=== PATIENT | male | born 1965 | race Caucasian/White ===

== ENCOUNTER 2021-02-24 19:21 | Inpatient (IN) | payer MEDICARE, SELFPAY ==
[2021-02-24 19:23] VITALS: BP 153/94; PULSE 120; RESP 18; TEMP 36.9; O2SAT 98; BMI 25.2
[2021-02-24 21:10] LABS: Bacteria 0 SEEN /hpf (None Seen); Mucous, Urine 0 SEEN /hpf (<or=2+)
--- NOTE | 2021-02-24 21:10 | CT_ITS ---
HISTORY: abdominal pain, diarrhea, fever, frequent urination EXAMINATION: CT Abdomen And Pelvis W/ Contrast Injection TECHNIQUE: Helically acquired images were obtained of the abdomen and pelvis following IV contrast, including delayed imaging, including delayed imaging. A radiation dose optimization technique was used for this scan. IV Contrast dosage and agent: 100mL Isovue-300 Oral contrast: None. COMPARISON: None FINDINGS: LOWER CHEST: Hyperexpanded lungs with no focal airspace consolidation. Small hiatal hernia. Heart normal size. LIVER: Fatty infiltration of liver. Benign, simple 5.4 cm cyst within left lobe of liver. GALLBLADDER AND BILIARY TREE: No calcified gallstones identified. There is no pericholecystic edema. No significant biliary ductal dilation. KIDNEYS AND URETERS: Normal renal size. No concerning lesion. There is no perinephric inflammation or hydronephrosis. ADRENAL GLANDS: Non-enlarged. SPLEEN: Normal size without discrete mass. PANCREAS: No discrete mass or peripancreatic inflammation. BOWEL: Normal appendix medial to cecum within right lower quadrant. No abnormal stomach or bowel distension. No focal inflammatory change observed. LYMPH NODES: No enlarged mesenteric or retroperitoneal lymph nodes. PERITONEUM: No free air or significant free fluid. Couple small, benign appearing calcified nodules within left pelvic cavity, likely dystrophic or post infectious. VESSELS: Mild to moderate atherosclerosis. URINARY BLADDER: Unremarkable. REPRODUCTIVE ORGANS: Markedly enlarged prostate gland measures 7 cm in AP diameter and 7.3 cm transverse diameter. Lobulated low-attenuation cyst within prostate gland surrounding the urethra measures up to 5 cm craniocaudal length and 3 cm axial diameter. ABDOMINAL WALL: Previous left inguinal hernia repair. Small right inguinal fat hernia noted. BONES: L5-S1 degenerative disc space narrowing. CT/Abdomen/Pelvis W IV Cont ONLY IMPRESSION: 1. Enlarged prostate gland with prominent simple appearing prostatic cystic lesion, possibly mullerian duct or utricle cyst. 2. No evidence of acute bowel pathology. 3. Hepatic steatosis, small hiatal hernia, and other nonurgent findings within body of report. Individualized dose optimization techniques were used for this CT. at 2254 Reported and signed by: Sonny Woo MD Electronically Signed: Sonny Woo MD at 22:53 EDT Tel , Service support ,
--- NOTE | 2021-02-24 21:11 | EDS_ITS ---
HPI HPI - GI History of Present Illness Chief Complaint: Complaint Narrative Narrative: 55-year-old male presenting with crampy abdominal pain as well as body aches. This started at 1 AM this morning. Patient is complained of dysuria and urinary frequency. He states I must of urinated 200 times. Patient also states that he has had a lot of diarrhea which is now clear. He denies any recent antibiotics use. 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 He denies fever. Patient currently expresses that his nausea is the worst. He states he has a past medical history of diabetes, hypertension, MS. He denies any black or bloody stools or black or bloody emesis. PFSH PFSH Allergy/AdvReac Type Severity Reaction Status Date / Time codeine AdvReac Nausea/Vom/ Verified 02/24/21 19:28 Diarrhea zinc AdvReac Nausea/Vom/ Verified 02/24/21 19:28 Diarrhea Social History Smoking Status: Never smoker ROS ROS ED Constitutional Constitutional ED: Reports chills; Denies fever(s) ENT ENT ED: Denies rhinorrhea or sore throat Cardiovascular Cardiovascular: Denies chest pain or palpitations Respiratory/Chest Respiratory/Chest: Denies cough or dyspnea Gastrointestinal Gastrointestinal: Reports abdominal pain, diarrhea, nausea and vomiting Genitourinary Genitourinary ED: Reports dysuria and urinary frequency Musculoskeletal Musculoskeletal: Reports myalgias; Denies arthralgias, back pain or neck pain Integumentary Denies Abrasions or rash Neurologic Neurologic: Denies headache(s) or paresthesias EXAM Physical Exam Const Vital Signs: 02/24/21 19:23 02/24/21 21:25 02/25/21 00:19 Temperature 98.5 F 98.5 F Temperature Source Temporal Temporal Pulse Rate 120 H 120 H Respiratory Rate 18 18 22 H Blood Pressure 153/94 H 153/94 H Blood Pressure Mean 113 113 Pulse Ox 98 98 Oxygen Delivery Method Room Air Room Air Positive well nourished General Appearance ED: other Tachycardic and diaphoretic ; Negative for pallor HEENT Reports moist mucous membranes normocephalic Eyes PERRL General Eye ED: Negative for pale conjunctiva or scleral icterus Resp normal respiratory effort and clear to auscultation bilaterally Cardio regular rhythm Rate: tachycardic GI non-tender and non-distended GI Narrative: Prostate is tender, and edematous. Limited exam secondary to patient pain. Palpation: soft Neuro Sensorium / Orientation: alert, oriented to person, oriented to place and oriented to time Psych mental status grossly normal and thought process normal Skin General Skin Exam: Negative for jaundice or pallor Lesions: no lesions Rashes: no rashes MDM MDM MDM Narrative Medical decision making narrative: Patient presenting with painful defecation, urinary frequency, dysuria. Patient states this started about 1 AM last evening. Has been vomiting and having diarrhea since. His diarrhea is now clear. He has not had a fever but complains of chills and body aches. On arrival patient is given Zofran and still continues to vomit. He is diaphoretic. I did ask him if he needed anything for pain and he states his pain is not his issue is more of his nausea and vomiting. On examination he does have a tender edematous prostate. Blood work shows a white blood cell count of 14.3, hemoglobin 15.6, hematocrit 44.8, platelets 161. Patient's CMP shows a mildly elevated total bilirubin of 1.6 and a mildly elevated alk phos at 1.19. Otherwise his LFTs are normal. Creatinine is 1.58 but since the patient is from [place] I do not have a comparison creatinine. Sodium slightly low at 130 however the patient is hyperglycemic with a blood sugar of 489. Patient is only on Metformin. He does not use insulin at home. He does not have an anion gap. Patient is ordered 2 L of IV fluids. Urinalysis is negative for infection but does show occult blood, urine ketones, glucose of 1000. Patient still having vomiting and I did order. Phenergan. His vomiting has improved somewhat but he still feels nauseous. He has occasional. Smaller vomiting than on arrival. CT of the abdomen pelvis is ordered and shows a very enlarged prostate with a benign-appearing prostatic cyst. Clinically I think the patient has prostatitis which could be treated with antibiotics outpatient however he has intractable nausea vomiting hyperglycemia which I feel needs to be addressed. Since the patient is tachycardic and has a white blood cell count I did add on a lactic acid, blood cultures, urine cultures. Patient was discussed with hospitalist who wanted to treat the patient with Levaquin and 750 mg of Levaquin was ordered. There was some difficulty given the patient IV fluids because he pulled out his IV twice rolling around in the bed. Some of this was partially due to him being diaphoretic and the adhesive tape not sticking to him. Currently only had 500 cc of IV fluids. Chest x-ray on my interpretation shows no acute cardiopulmonary process and I am awaiting read by the radiologist. Patient's repeat blood sugar after half a liter of IV fluids is 403. Discussed with the hospitalist that he wants 8 units of insulin given. Patient will continue to be hydrated. I then lactic acid and INR are pending but I do not believe this will change the course of treatment as he needs IV fluids. Lactic acid is pending and will be followed by incoming ED ED physician. Disposition will be determined after this is obtained. Impression: 1. Prostatitis 2. Hyperglycemia 3. Nausea/vomiting 4. Diarrhea Lab Data Labs: Laboratory Results - last 24 hr 02/24/21 02/24/21 02/24/21 21:03 21:14 21:14 WBC 14.3 H RBC 5.21 Hgb 15.6 Hct 44.8 MCV 86.0 MCH 29.9 MCHC 34.8 RDW Std Deviation 38.8 RDW Coeff of Brittany 12.5 Plt Count 161 MPV 11.3 Immature Gran % (Auto) 0.600 Neut % (Auto) 94.5 H Lymph % (Auto) 1.3 L [place] % (Auto) 3.3 Eos % (Auto) 0.1 Baso % (Auto) 0.2 Absolute Neuts (auto) 13.5 H Absolute Lymphs (auto) 0.18 L Nucleated RBC % 0 Differential Comment SCANNED Sodium 130 L Potassium 3.7 Chloride 94 L Carbon Dioxide 21.0 Anion Gap 15 BUN 18 Creatinine 1.58 H Estim Creat Clear Calc 56.93 Est GFR (MDRD) Af Amer 59 L Est GFR (MDRD) Non-Af 49 L BUN/Creatinine Ratio 11.4 Glucose 489 H* Calcium 10.1 Total Bilirubin 1.60 H AST 15 ALT 38 Alkaline Phosphatase 119 H Total Protein 8.1 Albumin 4.0 Globulin 4.1 Albumin/Globulin Ratio 1.0 Lipase 85 Urine Color Yellow Urine Clarity Sl. Cloudy Urine pH 6.0 Ur Specific [place] 1.020 Urine Protein 100 H Urine Glucose (UA) 1000 H Urine Ketones 150 A* Urine Occult Blood 150 H Urine Nitrite Negative Urine Bilirubin Negative Urine Urobilinogen Normal Ur Leukocyte Esterase 25 H Urine RBC 10-25 SEEN Urine WBC 0-5 SEEN Ur Squamous Epith Cells 0-5 SEEN Urine Bacteria 0 SEEN Urine Mucus 0 SEEN POC Glucose 02/25/21 00:17 WBC RBC Hgb Hct MCV MCH MCHC RDW Std Deviation RDW Coeff of Brittany Plt Count MPV Immature Gran % (Auto) Neut % (Auto) Lymph % (Auto) [place] % (Auto) Eos % (Auto) Baso % (Auto) Absolute Neuts (auto) Absolute Lymphs (auto) Nucleated RBC % Differential Comment Sodium Potassium Chloride Carbon Dioxide Anion Gap BUN Creatinine Estim Creat Clear Calc Est GFR (MDRD) Af Amer Est GFR (MDRD) Non-Af BUN/Creatinine Ratio Glucose Calcium Total Bilirubin AST ALT Alkaline Phosphatase Total Protein Albumin Globulin Albumin/Globulin Ratio Lipase Urine Color Urine Clarity Urine pH Ur Specific [place] Urine Protein Urine Glucose (UA) Urine Ketones Urine Occult Blood Urine Nitrite Urine Bilirubin Urine Urobilinogen Ur Leukocyte Esterase Urine RBC Urine WBC Ur Squamous Epith Cells Urine Bacteria Urine Mucus POC Glucose 403 H Radiography Diagnostic Testing: Radiology Impression Abdomen/Pelvis CT 02/24/21 21:10 IMPRESSION: 1. Enlarged prostate gland with prominent simple appearing prostatic cystic lesion, possibly mullerian duct or utricle cyst. 2. No evidence of acute bowel pathology. 3. Hepatic steatosis, small hiatal hernia, and other nonurgent findings within body of report. Individualized dose optimization techniques were used for this CT. at 2254 Reported and signed by: Sonny Woo MD Electronically Signed: Sonny Woo MD at 22:53 EDT Tel , Service support , Discharge Plan Triage Chief Complaint: Complaint Other Complaint: Diarrhea ED Provider: Jerry Martínez Dx/Rx/DC Orders Primary Care Provider: Care Physician,No Primary
[2021-02-24 21:20] LABS: Color, Urine Yellow (Yellow); Glucose, Dipstick 1000 mg/dl (Normal); Leukocyte Esterase-Dipstick 25 /ul (Negative); Nitrite-Dipstick Negative (Negative); Occult Blood-Urine 150 /ul (Negative); Protein-Dipstick 100 mg/dl (Negative); Urine Bilirubin Dipstick Negative (Negative); Urine Clarity Sl. Cloudy (Clear); Urine Urobilinogen Normal (Normal)
[2021-02-24 21:25] VITALS: BP 153/94; PULSE 120; RESP 18; TEMP 36.9; O2SAT 98
[2021-02-24] MEDS: Ondansetron 4 MG/2 ML Vial IV (21:25)
[2021-02-24] MEDS: 0.9% Normal Saline 1,000 ML 1000 ML IV (21:25)
[2021-02-24 21:26] LABS: Absolute Lymphocyte Count 0.18 X10^3/uL (0.83-4.51); Absolute Neutrophil Count 13.5 X10^3/uL (2.0-7.7); Basophil# 0.03 X10^3/uL; Basophil% 0.2 % (0-1); Eosinophil# 0.02 X10^3/uL; Eosinophils% 0.1 % (0-5); Hematocrit 44.8 % (40-54); Hemoglobin 15.6 g/dL (13.0-16.5); Lymphocyte # 0.18 X10^3/ul (0.83-4.51); Lymphocyte % 1.3 % (19-41); Mean Corp Hgb Conc 34.8 g/dL (32-36); Mean Corpuscular Hgb 29.9 pg (27.0-32.0); Mean Platelet Vol. 11.3 fl (6.2-12.0); Monocyte# 0.47 X10^3/uL; Monocyte% 3.3 % (0-10); NRBC Flagged by Analyzer 0 % (0-5); Neutrophil # 13.54 X10^3/uL (2.7-7.7); Neutrophil % 94.5 % (47-70); POSITIVE DIFFERENTIAL YES; Platelet Count 161 K/mm3 (150-450); RBC Distribution Width CV 12.5 % (11.6-14.6); RBC Distribution Width SD 38.8 fl (35.1-43.9); Red Blood Count 5.21 M/mm3 (4.6-6.2); White Blood Count 14.3 K/mm3 (4.4-11.0)
[2021-02-24 21:28] LABS: Differential Indicated SCAN CRITERIA MET
[2021-02-24 21:37] LABS: Ketone-Dipstick 150 mg/dl (Negative)
[2021-02-24 21:38] LABS: Red Blood Cells-Urine 10-25 SEEN /hpf (0-5); Squamous Epithelial Cells - UA 0-5 SEEN /hpf (0-5); White Blood Cells 0-5 SEEN /hpf (0-5)
[2021-02-24 21:50] LABS: AST(SGOT) 15 U/L (15-37); Alanine Aminotransfer ALT/SGPT 38 U/L (16-61); Alkaline Phosphatase 119 U/L (45-117); Anion Gap 15 (5-15); BUN 18 mg/dL (7-18); BUN/Creat Ratio 11.4 RATIO (10-20); Calcium,Total 10.1 mg/dL (8.5-10.1); Chloride 94 mmol/L (98-107); Creatinine, Serum 1.58 mg/dL (0.70-1.30); EST Glomerular Filtration Rate 49 mL/min (>60); Est Glom Filt Rate - Afr Amer 59 mL/min (>60); Estimated Creatinine Clearance 56.93 ml/min; Globulin 4.1 g/dL (2.2-4.2); Glucose 489 mg/dL (74-106); Lipase 85 U/L (73-393); Potassium 3.7 mmol/L (3.5-5.1); Protein, Total 8.1 g/dL (6.4-8.2); Sodium Level 130 mmol/L (136-145)
[2021-02-24 21:51] LABS: Differential Comment SCANNED
--- NOTE | 2021-02-24 23:50 | RAD_ITS ---
STUDY: X-RAY CHEST REASON FOR EXAM: Male, 55 years old. Cough TECHNIQUE: Single AP portable view of the chest. COMPARISON: Lung bases from a CT scan abdomen and pelvis February 24, 2021 FINDINGS: The lungs are clear and expanded. There is no demonstrated pleural abnormality. There is a coronary stent. Normal mediastinum and dimple. Normal visualized pulmonary arteries. Normal visualized aortic arch and descending thoracic aorta. Normal visualized thoracic spine. There multiple prior right-sided rib fractures. There is no demonstrated abnormality of the visualized soft tissue structures of the upper abdomen. RAD/Chest 1 View (Portable) IMPRESSION: Coronary stent. Old right-sided rib fractures. No acute infiltrate. Electronically Signed: Dilma Rader MD at 1:59 EDT Tel , Service support ,
[2021-02-25] VITALS (24 sets, daily range): BP systolic 108–149; BP diastolic 69–98; PULSE 85–119; RESP 17–26; TEMP 36.4–37.9; O2SAT 95–100; BMI 24.9
--- NOTE | 2021-02-25 00:11 | HP.PCM.HOS_ITS ---
[facility] - General General Date of Service: 02/25/21 Chief Complaint: Diarrhea HPI Narrative ALDO AGUILA, is a 55 M with a significant history of multiple sclerosis; diabetes mellitus; and hypertension who presents with a persistent diarrhea that started on the same day of presentation. He reports loose stool x3. Associated for symptoms is nausea and vomiting. Of note at emergency department patient was vomiting profusely. He reports tenesmus and abdominal pain. A CT of abdomen and pelvis at the emergency department was remarkable for enlarged prostate. Patient reports history of previously being on Flomax. 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 [facility] Medical History (Updated 02/25/21 @ 00:[address] Abdi Haddad MD) Diabetes mellitus, type 2 HTN (hypertension) Multiple sclerosis Allergy/AdvReac Type Severity Reaction Status Date / Time codeine AdvReac Nausea/Vom/ Verified 02/24/21 19:28 Diarrhea zinc AdvReac Nausea/Vom/ Verified 02/24/21 19:28 Diarrhea adopted Surgical History H/O foot surgery Social History Smoking Status: Former smoker ROS ROS Narrative Constitutional: Denies anorexia and change in weight Eyes: Denies blurry vision, change in eye color, change in vision, discharge from eye(s), double vision, erythema, eye pain, loss of vision or other HEENT: Denies abnormal hearing, dysphagia, ear pain, epistaxis, headache(s), hearing loss, nasal congestion, nasal discharge, post nasal drip, sinus pressure, sore throat or other Cardiovascular: Denies chest pain. Denies dyspnea on exertion, orthopnea and paroxysmal nocturnal dyspnea Respiratory/Chest: Denies cough, excessive phlegm production, shortness of breath with exertion and wheezing Gastrointestinal: Reports abdominal pain, nausea and vomiting. Reports diarrhea. Denies coffee ground emesis, dyspepsia, hematemesis, hematochezia, melena, or other Genitourinary: Reports burning with urination; increased frequency of urination. Reports penile pain. Musculoskeletal: Denies arthralgias, back pain, joint pain, joint stiffness, joint swelling, myalgias, neck pain or other Neurologic: Denies abnormal gait, abnormal speech, confusion, disequilibrium, dizziness, focal weakness, headache(s), numbness, paresthesias, seizure-like activity, seizures, syncope, tingling, tremor(s) or other Psychiatric: Denies anxiety, depression, homicidal ideation, suicidal ideation or other Endocrinology: Reports polyuria. Denies change in body appearance, or cold intolerance. Hematologic/Lymphatic: Denies anemia, easy bleeding, easy bruising, lymphadenopathy or other Integumentary: Denies rashes. Allergic/Immunologic: Denies rhinitis, hives, eczema, asthma or other Vital Signs Vital Signs Vital Signs: 02/24/21 19:23 02/24/21 21:25 Temperature 98.5 F 98.5 F Temperature Source Temporal Temporal Pulse Rate 120 H 120 H Respiratory Rate 18 18 Blood Pressure 153/94 H 153/94 H Blood Pressure Mean 113 113 Pulse Ox 98 98 Oxygen Delivery Method Room Air Room Air Weight Weight: 82.1 kg Body Mass Index (BMI) 25.2 Physical Exam Narrative Physical exam: General: Patient sitting in hospital bed retching and vomiting; and thrashing in bed. Head: Normocephalic, atraumatic, no tenderness Eyes: PERRLA, EOMI ENT, no trauma, moist mucous membranes, no rhinorrhea Neck: Nontender, full range of motion, no spinal tenderness, deformities, step- off CVS: S1-S2 present; tachycardia Respiratory: Respiratory distress; tachypnea; clear to auscultate Abdomen: Soft, nontender, nondistended, normal bowel sounds, no masses : Deferred Back: Nontender, no CVA tenderness, no midline spinal tenderness, deformities, step-offs Extremities: Nontender full range of motion, no trauma Skin: Normal color, no trauma, abrasions Neuro: Alert, oriented, cranial nerves II through XII grossly intact. Psychiatry: Thrashing in bed. Results Lab / Micro Data Result Diagrams: 02/24/21 21:14 02/24/21 21:14 Labs: Laboratory Results - last 24 hr 02/24/21 21:03: Urine Color Yellow, Urine Clarity Sl. Cloudy, Urine pH 6.0, Ur Specific [place] 1.020, Urine Protein 100 H, Urine Glucose (UA) 1000 H, Urine Ketones 150 A*, Urine Occult Blood 150 H, Urine Nitrite Negative, Urine Bilirubin Negative, Urine Urobilinogen Normal, Ur Leukocyte Esterase 25 H, Urine RBC 10-25 SEEN, Urine WBC 0-5 SEEN, Ur Squamous Epith Cells 0-5 SEEN, Urine Bacteria 0 SEEN, Urine Mucus 0 SEEN 02/24/21 21:14: WBC 14.3 H, RBC 5.21, Hgb 15.6, Hct 44.8, MCV 86.0, MCH 29.9, MCHC 34.8, RDW Std Deviation 38.8, RDW Coeff of Brittany 12.5, Plt Count 161, MPV 11.3, Immature Gran % (Auto) 0.600, Neut % (Auto) 94.5 H, Lymph % (Auto) 1.3 L, [place] % (Auto) 3.3, Eos % (Auto) 0.1, Baso % (Auto) 0.2, Absolute Neuts (auto) 13.5 H, Absolute Lymphs (auto) 0.18 L, Nucleated RBC % 0, Differential Comment SCANNED 02/24/21 21:14: Sodium 130 L, Potassium 3.7, Chloride 94 L, Carbon Dioxide 21.0, Anion Gap 15, BUN 18, Creatinine 1.58 H, Estim Creat Clear Calc 56.93, Est GFR (MDRD) Af Amer 59 L, Est GFR (MDRD) Non-Af 49 L, BUN/Creatinine Ratio 11.4, Glucose 489 H*, Calcium 10.1, Total Bilirubin 1.60 H, AST 15, ALT 38, Alkaline Phosphatase 119 H, Total Protein 8.1, Albumin 4.0, Globulin 4.1, Albumin/Globulin Ratio 1.0, Lipase 85 Micro: Microbiology 02/24/21 21:23 Nasal Secretion SARS-CoV-2 Antigen (Rapid) - Final Radiology Impression Abdomen/Pelvis CT 02/24/21 21:10 IMPRESSION: 1. Enlarged prostate gland with prominent simple appearing prostatic cystic lesion, possibly mullerian duct or utricle cyst. 2. No evidence of acute bowel pathology. 3. Hepatic steatosis, small hiatal hernia, and other nonurgent findings within body of report. Individualized dose optimization techniques were used for this CT. at 2254 Reported and signed by: Sonny Woo MD Electronically Signed: Sonny Woo MD at 22:53 EDT Tel , Service support , Assessment & Plan Assessment/Plan (1) Acute prostatitis: (2) Acute hyperglycemia: PLAN: Septic shock secondary to acute prostatitis SIRS criteria: White count of 14.3; respiratory rate of more than 20; heart rate of more than 90. QSOFA: Encephalopathy; tachypnea Lactic acid of 4.[address] abdomen pelvis: Enlarged prostate gland with prominent simple appearing prostatic cystic lesion, possibly mullerian duct or utricle cyst. Abdomen and pelvis CT was independently interpreted and agree radiologist interpretation. Discussed with emergent department doctor who started patient on Levaquin. Levaquin continued. Received normal saline bolus at emergency department. Normal saline maintenance infusion ordered. Blood culture x2 ordered emergency department. Urinalysis with no bacteria seen; leukocyte esterase of 25; nitrite negative. Urine culture ordered emergency department. Chlamydia and gonorrhea test ordered. Enteric pathogen panel; stool lactoferrin and Giardia lamblia enzyme immuno assay ordered Diabetes mellitus with acute hyperglycemia Glucose of 489 on BMP urinalysis showed urine glucose of 1000 and urine protein of 100. On home Metformin. Hold Metformin at this time. Received normal saline bolus at emergency department. Continue maintenance fluids. Received 8 units short acting insulin emergency department. We will put on a basal insulin. Accu-Chek every 4 hours of correction scale insulin. N.p.o. since patient is having nausea and vomiting. Compazine and Zofran IV ordered. TRUMAN Creatinine of 1.58 no previous records to compare with. Gentle IV hydration. Avoid nephrotoxic's. DVT prophylaxis: Subcutaneous Lovenox ordered. Charges/Coding Multi Select Codes Visit Charges Visit Charges: 26858 Init Hosp L3
[2021-02-25] MEDS: proMETHazine 25 MG/ML Syringe 12.5 MG IM (00:13)
[2021-02-25 00:21] LABS: Bedside Glucose 403 mg/dL (70-110)
[2021-02-25] MEDS: 0.9% Normal Saline 1,000 ML 999 ML IV ×4 (00:33→04:32)
[2021-02-25] MEDS: levoFLOXacin IV 750 MG/150 ML BAG 100 MG IV ×2 (00:33→19:39)
[2021-02-25 01:26] LABS: International Normalized Ratio 1.3; Prothrombin Time (Protime)PT. 15.2 SECONDS (11.7-14.9)
[2021-02-25] MEDS: Insulin Lispro 100 UNIT/ML INSULN.PEN 8 UNIT SC (01:30)
[2021-02-25 02:53] LABS: Chlamydia Trachomatis by PCR Negative (Negative); Neisserai gonorrhoeae by PCR Negative (Negative); Probe Check PASS; Sample Adequacy Control PASS; Specimen Processing Control PASS
[2021-02-25] MEDS: Ondansetron 4 MG/2 ML Vial IV ×4 (03:23→17:11)
[2021-02-25] MEDS: Insulin Lispro 100 UNIT/ML INSULN.PEN SC ×6 (03:33→19:46)
[2021-02-25 04:06] LABS: Reflex Lactate? Y
[2021-02-25 04:19] LABS: Absolute Lymphocyte Count 0.13 X10^3/uL (0.83-4.51); Absolute Neutrophil Count 8.9 X10^3/uL (2.0-7.7); Basophil# 0.04 X10^3/uL; Basophil% 0.4 % (0-1); Eosinophil# 1.34 X10^3/uL; Eosinophils% 12.2 % (0-5); Hematocrit 35.5 % (40-54); Hemoglobin 12.4 g/dL (13.0-16.5); Lymphocyte # 0.13 X10^3/ul (0.83-4.51); Lymphocyte % 1.2 % (19-41); Mean Corp Hgb Conc 34.9 g/dL (32-36); Mean Corpuscular Volume 85.7 fL (80-94); Mean Platelet Vol. 11.2 fl (6.2-12.0); Monocyte# 0.48 X10^3/uL; Monocyte% 4.4 % (0-10); NRBC Flagged by Analyzer 0 % (0-5); POSITIVE DIFFERENTIAL YES; POSITIVE MORPHOLOGY YES; Platelet Count 109 K/mm3 (150-450); RBC Distribution Width CV 12.5 % (11.6-14.6); RBC Distribution Width SD 38.7 fl (35.1-43.9); Red Blood Count 4.14 M/mm3 (4.6-6.2)
[2021-02-25 04:25] LABS: Differential Indicated SCAN CRITERIA MET
[2021-02-25 04:38] LABS: Anion Gap 8 (5-15); BUN 14 mg/dL (7-18); BUN/Creat Ratio 11.2 RATIO (10-20); Calcium,Total 8.2 mg/dL (8.5-10.1); Chloride 108 mmol/L (98-107); Creatinine, Serum 1.25 mg/dL (0.70-1.30); EST Glomerular Filtration Rate 64 mL/min (>60); Est Glom Filt Rate - Afr Amer 77 mL/min (>60); Estimated Creatinine Clearance 71.95 ml/min; Glucose 275 mg/dL (74-106); Potassium 3.2 mmol/L (3.5-5.1); Sodium Level 137 mmol/L (136-145)
[2021-02-25 04:45] LABS: Lactic Acid 2.8 mmol/L (0.4-1.9)
[2021-02-25 05:03] LABS: Differential Comment SCANNED
[2021-02-25] MEDS: 0.9% Normal Saline 1,000 ML 100 ML IV ×2 (05:38→15:43)
[2021-02-25 06:00] LABS: Bedside Glucose 253 mg/dL (70-110)
[2021-02-25] MEDS: Potassium Chloride Oral Tablet 20 MEQ 40 MEQ PO (07:01)
[2021-02-25] MEDS: 0.9% Saline Lock 10 ML Syringe IV ×2 (07:01→08:19)
[2021-02-25] MEDS: proCHLORPERazine 10 MG/2 ML Vial 5 MG IV ×2 (07:01→19:56)
[2021-02-25 07:26] LABS: Bedside Glucose 303 mg/dL (70-110)
--- NOTE | 2021-02-25 07:50 | PCM.CONS.U ---
Assessment & Plan Assessment/Plan (1) Acute prostatitis: PLAN: Patient is a 55-year-old male from out of town presents to the hospital with what appears to be prostatitis CAT scan demonstrates a very large prostate with a prostatic cyst possible suspicion that the cyst could be infected the only way to be sure would be to do a ultrasound-guided cyst aspiration which I could do tomorrow in the operating room the patient is still around but in talking to the patient he really wants to go back to [place]. I am not sure if he is really ready for discharge but it is possible if he stabilizes he could go home for outpatient management but he still has not tried to have any food etc. Recommended to the patient when he gets back to [place] he definitely needs to see a urologist to assess his prostate he does have a very large prostate and a may need further intervention. I will combine check tomorrow to see if he is still around if he still in the hospital then probably would make him n.p.o. taken to surgery to do an aspiration of these prostatic cyst to make sure he does not have a prostatic abscess. I told the patient if he is discharged then he needs to see a urologist when he gets back to [place]. I will be by tomorrow morning to check on him. HPI Consult Data Date of Consult: 02/25/21 HPI Narrative HPI Narrative: ALDO AGUILA, is a 55 M who lives in [place] he was coming up. Driving [place] and had sudden onset of intractable nausea vomiting. He does have a history of a large prostate and his primary care physician put him on Flomax and Myrbetriq. On admission CT scan demonstrates a very large prostate he also has a large prostatic cyst it is possible that the cyst could be infected. He was admitted to the ICU because of his lactic acid being high but he is stable he is not hypotensive. [facility] Medical History Diabetes mellitus, type 2 HTN (hypertension) Multiple sclerosis Home Medications amlodipine 10 mg PO DAILY 02/25/21 [History Last Taken 02/24/21 01:00] atomoxetine 40 mg PO BID 02/25/21 [History Last Taken 02/24/21 01:00] atorvastatin 20 mg PO DAILY 02/25/21 [History Last Taken 02/24/21 01:00] carvedilol 6.25 mg PO BID 02/25/21 [History Last Taken 02/24/21 01:00] dalfampridine 10 mg PO BID 02/25/21 [History Last Taken 02/24/21 01:00] diazepam 5 mg PO DAILY 02/25/21 [History Last Taken 02/24/21 01:00] fingolimod [Gilenya] 0.5 mg PO QODAY 02/25/21 [History Last Taken 02/23/21 08:00] gabapentin 800 mg PO TID 02/25/21 [History Last Taken 02/24/21 01:00] glipizide 10 mg PO BID 02/25/21 [History Last Taken 02/24/21 01:00] metformin 500 mg PO BID 02/25/21 [History Last Taken 02/24/21 01:00] mirabegron [Myrbetriq] 25 mg PO DAILY 02/25/21 [History Last Taken 02/24/21 01:00] nystatin 1 applic OTHER BID 02/25/21 [History Last Taken 02/24/21 01:00] sertraline 100 mg PO BID 02/25/21 [History Last Taken 02/24/21 01:00] tamsulosin 0.4 mg PO DAILY 02/25/21 [History Last Taken 02/24/21 01:00] Allergy/AdvReac Type Severity Reaction Status Date / Time codeine AdvReac Nausea/Vom/ Verified 02/24/21 19:28 Diarrhea zinc AdvReac Nausea/Vom/ Verified 02/24/21 19:28 Diarrhea Surgical History H/O foot surgery Social History Smoking Status: Former smoker ROS Constitutional Constitutional: Denies chills, fever(s) or malaise Eyes Eyes: Denies blurry vision or change in vision ENT HEENT: Reports none Cardiovascular Cardiovascular: Denies chest pain or palpitations Respiratory/Chest Respiratory/Chest: Denies cough or shortness of breath with exertion Gastrointestinal Gastrointestinal: Reports nausea and vomiting; Denies abdominal pain, constipation or diarrhea Genitourinary Genitourinary: Reports urinary urgency Musculoskeletal Musculoskeletal: Denies back pain, joint stiffness or joint swelling Integumentary Integumentary: Denies dry skin, jaundice, lesions or rash Neurologic Neurologic: Denies confusion, syncope or weakness Psychiatric Psychiatric: Reports none; Denies anxiety or depression Endocrine Endocrinology: Denies excessive sweating, fatigue or flushing Hematologic/Lymphatic Hematologic/Lymphatic: Denies anemia, easy bleeding or easy bruising Physical Exam Const alert and oriented x3 General Appearance: cooperative HEENT normocephalic, head/scalp atraumatic, EAC's normal and TM's normal bilaterally Eyes PERRL and EOMs intact bilaterally Pupil: sluggish Neck no lymphadenopathy, supple and no JVD General: trachea midline Lymph Lymphatic: no lymphadenopathy noted, lymphedema and lymphadenopathy Resp normal respiratory effort, normal air movement and clear to auscultation bilaterally Cardio regular rate, regular rhythm and peripheral pulses 2+ throughout GI soft to palpation, non-tender and non-distended Extremity normal capillary refill and no clubbing, cyanosis or edema General Extremity: no tenderness to palpation of joints or extremities Skin no rashes or lesions noted General Skin Exam: turgor normal Lesions: no lesions Rashes: no rashes Neuro CN's II-XII intact bilaterally Speech: speech normal Motor Exam: strength 5/5 throughout; Negative for general weakness Psych thought process normal, cooperative and affect normal Appearance: appropriate Lab / Micro Data Result Diagrams: 02/25/21 03:45 02/25/21 03:45 Labs: Laboratory Results - last 24 hr 02/24/21 21:03: Urine Color Yellow, Urine Clarity Sl. Cloudy, Urine pH 6.0, Ur Specific [place] 1.020, Urine Protein 100 H, Urine Glucose (UA) 1000 H, Urine Ketones 150 A*, Urine Occult Blood 150 H, Urine Nitrite Negative, Urine Bilirubin Negative, Urine Urobilinogen Normal, Ur Leukocyte Esterase 25 H, Urine RBC 10-25 SEEN, Urine WBC 0-5 SEEN, Ur Squamous Epith Cells 0-5 SEEN, Urine Bacteria 0 SEEN, Urine Mucus 0 SEEN 02/24/21 21:14: WBC 14.3 H, RBC 5.21, Hgb 15.6, Hct 44.8, MCV 86.0, MCH 29.9, MCHC 34.8, RDW Std Deviation 38.8, RDW Coeff of Brittany 12.5, Plt Count 161, MPV 11.3, Immature Gran % (Auto) 0.600, Neut % (Auto) 94.5 H, Lymph % (Auto) 1.3 L, [place] % (Auto) 3.3, Eos % (Auto) 0.1, Baso % (Auto) 0.2, Absolute Neuts (auto) 13.5 H, Absolute Lymphs (auto) 0.18 L, Nucleated RBC % 0, Differential Comment SCANNED 02/24/21 21:14: Sodium 130 L, Potassium 3.7, Chloride 94 L, Carbon Dioxide 21.0, Anion Gap 15, BUN 18, Creatinine 1.58 H, Estim Creat Clear Calc 56.93, Est GFR (MDRD) Af Amer 59 L, Est GFR (MDRD) Non-Af 49 L, BUN/Creatinine Ratio 11.4, Glucose 489 H*, Calcium 10.1, Total Bilirubin 1.60 H, AST 15, ALT 38, Alkaline Phosphatase 119 H, Total Protein 8.1, Albumin 4.0, Globulin 4.1, Albumin/Globulin Ratio 1.0, Lipase 85 02/24/21 23:57: Lactic Acid 4.0 H* 02/25/21 00:17: POC Glucose 403 H 02/25/21 00:56: Chlam trachomat DNA PCR Negative, N.gonorrhoeae DNA (PCR) Negative 02/25/21 00:59: PT 15.2 H, INR 1.3 02/25/21 03:31: POC Glucose 253 H 02/25/21 03:45: WBC 11.0, RBC 4.14 L, Hgb 12.4 L, Hct 35.5 L, MCV 85.7, MCH 30.0, MCHC 34.9, RDW Std Deviation 38.7, RDW Coeff of [place] 12.5, Plt Count 109 L, MPV 11.2, Immature Gran % (Auto) 0.800, Neut % (Auto) 81.0 H, Lymph % (Auto) 1.2 L, [place] % (Auto) 4.4, Eos % (Auto) 12.2 H, Baso % (Auto) 0.4, Absolute Neuts (auto) 8.9 H, Absolute Lymphs (auto) 0.13 L, Nucleated RBC % 0, Differential Comment SCANNED 02/25/21 03:45: Sodium 137, Potassium 3.2 L, Chloride 108 H, Carbon Dioxide 21.0, Anion Gap 8, BUN 14, Creatinine 1.25, Estim Creat Clear Calc 71.95, Est GFR (MDRD) Af Amer 77, Est GFR (MDRD) Non-Af 64, BUN/Creatinine Ratio 11.2, Glucose 275 H, Calcium 8.2 L 02/25/21 03:45: Lactic Acid 2.8 H* 02/25/21 07:05: POC Glucose 303 H Micro: Microbiology 02/24/21 21:23 Nasal Secretion SARS-CoV-2 Antigen (Rapid) - Final Radiology Impression Abdomen/Pelvis CT 02/24/21 21:10 IMPRESSION: 1. Enlarged prostate gland with prominent simple appearing prostatic cystic lesion, possibly mullerian duct or utricle cyst. 2. No evidence of acute bowel pathology. 3. Hepatic steatosis, small hiatal hernia, and other nonurgent findings within body of report. Individualized dose optimization techniques were used for this CT. at 2254 Reported and signed by: Sonny Woo MD Electronically Signed: Sonny Woo MD at 22:53 EDT Tel , Service support , Chest X-Ray 02/24/21 23:50 IMPRESSION: Coronary stent. Old right-sided rib fractures. No acute infiltrate. Electronically Signed: Dilma Rader MD at 1:59 EDT Tel , Service support ,
--- NOTE | 2021-02-25 07:59 | EX.PCM.CONCC ---
Assessment & Plan Assessment/Plan (1) Acute prostatitis: (2) Acute hyperglycemia: PLAN: RECOMMENDATIONS: 1. Continue empiric antibiotics 2. Continue symptomatic therapy for nausea and vomiting. Await GI work-up 3. Aggressive control of blood sugars 4. Increase activity as tolerated 5. Continue aggressive fluid resuscitation 6. Okay to leave the intensive care unit from my perspective 7. We will sign off from a critical care perspective IMPRESSIONS: 1. Sepsis secondary to acute prostatitis Patient with acute sepsis secondary to prostatitis with endorgan damage as evidenced by elevated creatinine. Patient does have a cyst in the prostate that may have become infected. Urology is reporting a possibility of drainage. Continue with empiric antibiotics for now. Patient appears to be able to void and urine function is improving, so likely okay to hold on a Gale catheter at this time. Defer to urology if Levaquin is the most appropriate option as an antibiotic. Neck wound appears to be a healing cryotherapy lesion. No associated fluctuance or erythema to suggest this as the site of infection. 2. Acute kidney injury Patient likely has an element of both postobstructive and prerenal etiologies. Patient has responded well to aggressive fluid resuscitation. Continue with antibiotics. We will hold on placement of a Gale catheter for now unless requested by urology. Could check a post void residual. 3. Hyperglycemia with uncontrolled diabetes mellitus Patient with significant glucosuria, likely secondary to problem #1. Patient is on Metformin, but this has been held secondary to concerns for lactic acidosis. Continue with aggressive control with sliding scale insulin. Continue symptomatic therapy for nausea and vomiting. No signs of DKA on laboratory work-up. 4. Hypertension/BPH/MS/poor history Complicates care, management, recovery and prognosis. Okay to continue with baseline medications from my perspective. HPI Consult Data Date of Consult: 02/25/21 HPI Narrative HPI Narrative: ALDO AGUILA is a 55 M, with past medical history listed below, who presents to [facility] on 02/24/2021 secondary to crampy abdominal pain and body aches. Patient reportedly had woken up at approximately 1:00 in the morning with dysuria and urinary frequency. Patient states he is also had multiple bouts of diarrhea. Patient reported that his last antibiotics were approximately 2 weeks ago. 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 Patient did not report any fever, but did have nausea. Patient has not had any black or bloody stools. Patient did describe possible coffee-ground emesis versus cranberry juice that was consumed just prior to his episode of emesis. On presentation to the ER, patient was afebrile, but tachycardic at 120 bpm. Patient was hypertensive at 153/94 and saturating well on room air. ER physician reported the patient was diaphoretic and had multiple episodes of emesis in the ER. Patient was given Zofran. Physical exam was notable for an edematous prostate. Laboratory work-up showed a leukocytosis of 14.3, hemoglobin of 15.6 and platelets of 161. Sodium was low at 130, but glucose was elevated at 489. Creatinine was elevated at 1.58 and LFTs were relatively unremarkable. Alkaline phosphatase was slightly elevated at 119. UA was relatively unremarkable except for protein and glucose. Patient did have ketones. A CT of the abdomen and pelvis showed an enlarged prostate and hepatic steatosis. Patient did have a small hiatal hernia. Patient was given ceftriaxone and Levaquin and admitted to the intensive care unit. Since being in the intensive care unit, patient has done okay. Patient has had some nausea and vomiting, but has remained hemodynamically stable. Patient's maximum temperature was 37.8 ?C, but patient has persisted in being tachycardic. Patient overall feels that he is subjectively improved. Patient does not report any pulmonary history in the past. Patient is denying any history of cholecystectomy or appendectomy. Patient has had significant urgency and frequency associated with urination. Patient is unaware of any previous renal dysfunction. Patient reports he has been compliant with his medications. Review of systems otherwise negative from a constitutional, HEENT, respiratory, cardiovascular, GI, genitourinary, musculoskeletal, skin, neurologic, psychiatric and hematologic system unless stated above. [facility] Medical History Diabetes mellitus, type 2 HTN (hypertension) Multiple sclerosis Home Medications amlodipine 10 mg PO DAILY 02/25/21 [History Last Taken 02/24/21 01:00] atomoxetine 40 mg PO BID 02/25/21 [History Last Taken 02/24/21 01:00] atorvastatin 20 mg PO DAILY 02/25/21 [History Last Taken 02/24/21 01:00] carvedilol 6.25 mg PO BID 02/25/21 [History Last Taken 02/24/21 01:00] dalfampridine 10 mg PO BID 02/25/21 [History Last Taken 02/24/21 01:00] diazepam 5 mg PO DAILY 02/25/21 [History Last Taken 02/24/21 01:00] fingolimod [Gilenya] 0.5 mg PO QODAY 02/25/21 [History Last Taken 02/23/21 08:00] gabapentin 800 mg PO TID 02/25/21 [History Last Taken 02/24/21 01:00] glipizide 10 mg PO BID 02/25/21 [History Last Taken 02/24/21 01:00] metformin 500 mg PO BID 02/25/21 [History Last Taken 02/24/21 01:00] mirabegron [Myrbetriq] 25 mg PO DAILY 02/25/21 [History Last Taken 02/24/21 01:00] nystatin 1 applic OTHER BID 02/25/21 [History Last Taken 02/24/21 01:00] sertraline 100 mg PO BID 02/25/21 [History Last Taken 02/24/21 01:00] tamsulosin 0.4 mg PO DAILY 02/25/21 [History Last Taken 02/24/21 01:00] Allergy/AdvReac Type Severity Reaction Status Date / Time codeine AdvReac Nausea/Vom/ Verified 02/24/21 19:28 Diarrhea zinc AdvReac Nausea/Vom/ Verified 02/24/21 19:28 Diarrhea Surgical History H/O foot surgery Social History Smoking Status: Former smoker ROS ROS Narrative See HPI Physical Exam Const alert, oriented x3 and no apparent distress General Appearance: cooperative and well developed HEENT normocephalic, head/scalp atraumatic and moist oral mucous membranes Eyes PERRL and EOMs intact bilaterally Neck full ROM and no lymphadenopathy Chest inspection of chest normal Resp normal respiratory effort and no use of accessory muscles Effort and Inspection: able to speak in complete sentences Auscultation: clear to auscultation bilaterally; Negative for rales, rhonchi or wheezes Percussion: Negative for dullness Cardio regular rate, regular rhythm, S1 normal heart sound, S2 normal heart sound, no murmurs, no rub and no gallops GI Inspection: abdominal distention Auscultation: hyperactive bowel sounds Palpation: soft and tender epigastric; Negative for guarding, rigid, no hepatosplenomegaly, mass or rebound tenderness present Percussion: Negative for fluid wave no CVA tenderness Extremity no clubbing, cyanosis or edema Skin Skin Narrative: Desquamative lesion noted in the right anterior neck. Patient reported a mole was recently treated with cryotherapy in that area. No associated erythema or fluctuance noted. Neuro oriented x3, CN's II-XII intact bilaterally, moves all extremities and no focal motor deficits Psych cooperative and affect normal Lab / Micro Data Result Diagrams: 02/25/21 03:45 02/25/21 03:45 Labs: Laboratory Results - last 24 hr 02/24/21 21:03: Urine Color Yellow, Urine Clarity Sl. Cloudy, Urine pH 6.0, Ur Specific [place] 1.020, Urine Protein 100 H, Urine Glucose (UA) 1000 H, Urine Ketones 150 A*, Urine Occult Blood 150 H, Urine Nitrite Negative, Urine Bilirubin Negative, Urine Urobilinogen Normal, Ur Leukocyte Esterase 25 H, Urine RBC 10-25 SEEN, Urine WBC 0-5 SEEN, Ur Squamous Epith Cells 0-5 SEEN, Urine Bacteria 0 SEEN, Urine Mucus 0 SEEN 02/24/21 21:14: WBC 14.3 H, RBC 5.21, Hgb 15.6, Hct 44.8, MCV 86.0, MCH 29.9, MCHC 34.8, RDW Std Deviation 38.8, RDW Coeff of Brittany 12.5, Plt Count 161, MPV 11.3, Immature Gran % (Auto) 0.600, Neut % (Auto) 94.5 H, Lymph % (Auto) 1.3 L, [place] % (Auto) 3.3, Eos % (Auto) 0.1, Baso % (Auto) 0.2, Absolute Neuts (auto) 13.5 H, Absolute Lymphs (auto) 0.18 L, Nucleated RBC % 0, Differential Comment SCANNED 02/24/21 21:14: Sodium 130 L, Potassium 3.7, Chloride 94 L, Carbon Dioxide 21.0, Anion Gap 15, BUN 18, Creatinine 1.58 H, Estim Creat Clear Calc 56.93, Est GFR (MDRD) Af Amer 59 L, Est GFR (MDRD) Non-Af 49 L, BUN/Creatinine Ratio 11.4, Glucose 489 H*, Calcium 10.1, Total Bilirubin 1.60 H, AST 15, ALT 38, Alkaline Phosphatase 119 H, Total Protein 8.1, Albumin 4.0, Globulin 4.1, Albumin/Globulin Ratio 1.0, Lipase 85 02/24/21 23:57: Lactic Acid 4.0 H* 02/25/21 00:17: POC Glucose 403 H 02/25/21 00:56: Chlam trachomat DNA PCR Negative, N.gonorrhoeae DNA (PCR) Negative 02/25/21 00:59: PT 15.2 H, INR 1.3 02/25/21 03:31: POC Glucose 253 H 02/25/21 03:45: WBC 11.0, RBC 4.14 L, Hgb 12.4 L, Hct 35.5 L, MCV 85.7, MCH 30.0, MCHC 34.9, RDW Std Deviation 38.7, RDW Coeff of Brittany 12.5, Plt Count 109 L, MPV 11.2, Immature Gran % (Auto) 0.800, Neut % (Auto) 81.0 H, Lymph % (Auto) 1.2 L, [place] % (Auto) 4.4, Eos % (Auto) 12.2 H, Baso % (Auto) 0.4, Absolute Neuts (auto) 8.9 H, Absolute Lymphs (auto) 0.13 L, Nucleated RBC % 0, Differential Comment SCANNED 02/25/21 03:45: Sodium 137, Potassium 3.2 L, Chloride 108 H, Carbon Dioxide 21.0, Anion Gap 8, BUN 14, Creatinine 1.25, Estim Creat Clear Calc 71.95, Est GFR (MDRD) Af Amer 77, Est GFR (MDRD) Non-Af 64, BUN/Creatinine Ratio 11.2, Glucose 275 H, Calcium 8.2 L 02/25/21 03:45: Lactic Acid 2.8 H* 02/25/21 07:05: POC Glucose 303 H Micro: Microbiology 02/24/21 21:23 Nasal Secretion SARS-CoV-2 Antigen (Rapid) - Final Radiology Impression Abdomen/Pelvis CT 02/24/21 21:10 IMPRESSION: 1. Enlarged prostate gland with prominent simple appearing prostatic cystic lesion, possibly mullerian duct or utricle cyst. 2. No evidence of acute bowel pathology. 3. Hepatic steatosis, small hiatal hernia, and other nonurgent findings within body of report. Individualized dose optimization techniques were used for this CT. at 2254 Reported and signed by: Sonny Woo MD Electronically Signed: Sonny Woo MD at 22:53 EDT Tel , Service support , Chest X-Ray 02/24/21 23:50 IMPRESSION: Coronary stent. Old right-sided rib fractures. No acute infiltrate. Electronically Signed: Dilma Rader MD at 1:59 EDT Tel , Service support , Charges/Coding Visit Charges Inpatient E&M: 29780 Init Hosp L3
[2021-02-25 10:22] LABS: Bedside Glucose 288 mg/dL (70-110)
[2021-02-25] MEDS: Sertraline 100 MG Tablet PO ×2 (10:31→19:46)
[2021-02-25] MEDS: Tamsulosin HCl 0.4 MG Capsule PO (10:33)
[2021-02-25] MEDS: Gabapentin 800 MG Tablet PO ×2 (10:33→19:45)
[2021-02-25] MEDS: Atorvastatin Calcium 20 MG Tablet PO (10:33)
[2021-02-25] MEDS: Enoxaparin 40 MG/0.4 ML Syringe SC (10:33)
--- NOTE | 2021-02-25 10:53 | PCS.PANDOC ---
PANDEMIC DOCUMENTATION INITIATED: Date: 02/10/2021 Time: 190
--- NOTE | 2021-02-25 11:30 | CASEMGMT ---
RN BONITA Face to Face with patient for initial transition planning/care coordination assessment. RN CM introduced self and role at [facility]. Patient lying in bed, alert and oriented. Patient willing to participate in assessment and is able to answer all questions appropriately. Care providers, pharmacy, and demographics verified. Patient wishes to discharge home, denies need for home health at this time. Patient states he has no further needs or concerns at this time. CM to follow for discharge planning needs that may arise. PCP: Patient states he follows with PCP in [place] Specialists: none Preferred Pharmacy: [facility] retail at discharge if needed. 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 Patient states that he is returning to [place] when discharged. Transportation: self DME/HHC: Patient denies DME or HHC. Disposition Plan: Patient to discharge home with follow-up plans in place. Tami PABLO, RN, CM
--- NOTE | 2021-02-25 13:59 | PCM.DC ---
Discharge Instructions Diet Discharge Diet: 1999 Calorie Control Diet Activity Discharge Activity: Return to Normal Activity Dressing / Incision Call your doctor if you observe: Fever of 101 or Higher and - (inability to urinate) Follow Up Care Please Follow Up With: Urology When: 1-2 weeks Test Results: Test results from this visit will be discussed in further detail at your follow-up appointment, if applicable. Discharge Plan Admission Admit Date/Time: 02/25/21 02:22 Primary Reason for Your Visit: Prostatitis Attending Provider: Luis Parnell Primary Care Provider: Care Physician,No Primary Consulting Providers: Denton Aparicio Discharge Orders/Prescriptions Prescriptions: New levofloxacin 750 mg tablet 750 mg PO Q24H Qty: 13 RF: 0 Continued metformin 500 mg Tablet 500 mg PO BID RF: 0 carvedilol 6.25 mg tablet 6.25 mg PO BID RF: 0 atorvastatin 20 mg tablet 20 mg PO DAILY RF: 0 glipizide 10 mg tablet extended release 24hr 10 mg PO BID RF: 0 sertraline 100 mg tablet 100 mg PO BID RF: 0 tamsulosin 0.4 mg Capsule 0.4 mg PO DAILY RF: 0 gabapentin 800 mg tablet 800 mg PO TID RF: 0 amlodipine 10 mg tablet 10 mg PO DAILY RF: 0 diazepam 5 mg tablet 5 mg PO DAILY RF: 0 atomoxetine 40 mg capsule 40 mg PO BID RF: 0 dalfampridine 10 mg tablet extended release 12 hr 10 mg PO BID RF: 0 Gilenya 0.5 mg capsule 0.5 mg PO QODAY RF: 0 Myrbetriq 25 mg tablet extended release 24 hr 25 mg PO DAILY RF: 0 nystatin 1 applic OTHER BID RF: 0 Referrals / Follow Up: Care Physician,No Primary [Primary Care Provider] - Disposition Disposition (needs filled in before D/C Order can be placed): Home, Self Care
--- NOTE | 2021-02-25 14:05 | DS.PCM_ITS ---
Providers Date of Admission: 02/25/21 Primary Care Physician: Domi Primary Care Phys Consultations 02/25/21 02:26 Consult: [employer] / Pulmonary Medicine Routine Consulting Provider: Denton Aparicio Reason for Consult: Septic shock EMERGENT Consult: No MD Notified: Yes Date Notified: 02/25/21 Time Notified: 01:02 Method of Notification: Text Reason For Visit: ACUTE HYPERGLYCEMIA, ACUTE PROSTATITIS Diagnosis Discharge Diagnosis (1) Acute prostatitis: Status: Acute Code(s): N41.0 - Acute prostatitis (2) Acute hyperglycemia: Status: Acute Code(s): R73.9 - Hyperglycemia, unspecified Medications at Discharge Home Medications Gilenya 0.5 mg PO QODAY 02/25/21 Myrbetriq 25 mg PO DAILY 02/25/21 amlodipine 10 mg PO DAILY 02/25/21 atomoxetine 40 mg PO BID 02/25/21 atorvastatin 20 mg PO DAILY 02/25/21 carvedilol 6.25 mg PO BID 02/25/21 dalfampridine 10 mg PO BID 02/25/21 diazepam 5 mg PO DAILY 02/25/21 gabapentin 800 mg PO TID 02/25/21 glipizide 10 mg PO BID 02/25/21 levofloxacin 750 mg PO Q24H #13 tab 02/25/21 metformin 500 mg PO BID 02/25/21 nystatin 1 applic OTHER BID 02/25/21 sertraline 100 mg PO BID 02/25/21 tamsulosin 0.4 mg PO DAILY 02/25/21 Hospital Course Operations None Procedures None Summary of Care Provided Minutes Spent on Discharge: 28 Hospital Course: 55-year-old male presents with diarrhea. Patient was noted to have enlarged prostate on CAT scan with concern for cyst but could not rule out an abscess. 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 Patient had a lactic acid of 4 but is on Metformin. Patient was normotensive here and so septic shock is ruled out. Patient did have a qSOFA score of 2 upon admission so patient was septic but not septic shock. Patient had prostatitis and will be treated with 2 weeks of levofloxacin. Patient was seen by urology and recommended ultrasound-guided aspiration but patient would prefer to have this done at his [place] with urology. Patient has not seen urology in roughly 25 years when he had a vasectomy so he is not currently established with any urologist. Patient wishes to go home and have close follow-up in [place] rather than remain here. Patient will be discharged to complete a 2-week course of levofloxacin. Physical Exam Const alert Resp normal respiratory effort, no retractions, no use of accessory muscles and clear to auscultation bilaterally Cardio regular rate, regular rhythm, S1 normal heart sound and S2 normal heart sound GI normal to inspection, nondistended, normoactive bowel sounds, soft to palpation, non-tender and non-distended Extremity normal to inspection Weight / BMI Weight Weight: 81.2 kg Body Mass Index (BMI) 24.9 ABG / Lab / Microbiology Data Result Diagrams: 02/25/21 03:45 02/25/21 03:45 Laboratory: Laboratory Results - last 24 hr 02/24/21 21:03: Urine Color Yellow, Urine Clarity Sl. Cloudy, Urine pH 6.0, Ur Specific [place] 1.020, Urine Protein 100 H, Urine Glucose (UA) 1000 H, Urine Ketones 150 A*, Urine Occult Blood 150 H, Urine Nitrite Negative, Urine Bilirubin Negative, Urine Urobilinogen Normal, Ur Leukocyte Esterase 25 H, Urine RBC 10-25 SEEN, Urine WBC 0-5 SEEN, Ur Squamous Epith Cells 0-5 SEEN, Urine Bacteria 0 SEEN, Urine Mucus 0 SEEN 02/24/21 21:14: WBC 14.3 H, RBC 5.21, Hgb 15.6, Hct 44.8, MCV 86.0, MCH 29.9, MCHC 34.8, RDW Std Deviation 38.8, RDW Coeff of Brittany 12.5, Plt Count 161, MPV 11.3, Immature Gran % (Auto) 0.600, Neut % (Auto) 94.5 H, Lymph % (Auto) 1.3 L, Eagle % (Auto) 3.3, Eos % (Auto) 0.1, Baso % (Auto) 0.2, Absolute Neuts (auto) 13.5 H, Absolute Lymphs (auto) 0.18 L, Nucleated RBC % 0, Differential Comment S CANNED 02/24/21 21:14: Sodium 130 L, Potassium 3.7, Chloride 94 L, Carbon Dioxide 21.0, Anion Gap 15, BUN 18, Creatinine 1.58 H, Estim Creat Clear Calc 56.93, Est GFR (MDRD) Af Amer 59 L, Est GFR (MDRD) Non-Af 49 L, BUN/Creatinine Ratio 11.4, Glucose 489 H*, Calcium 10.1, Total Bilirubin 1.60 H, AST 15, ALT 38, Alkaline Phosphatase 119 H, Total Protein 8.1, Albumin 4.0, Globulin 4.1, Albumi n/Globulin Ratio 1.0, Lipase 85 02/24/21 23:57: Lactic Acid 4.0 H* 02/25/21 00:17: POC Glucose 403 H 02/25/21 00:56: Chlam trachomat DNA PCR Negative, N.gonorrhoeae DNA (PCR) Negative 02/25/21 00:59: PT 15.2 H, INR 1.3 02/25/21 03:31: POC Glucose 253 H 02/25/21 03:45: WBC 11.0, RBC 4.14 L, Hgb 12.4 L, Hct 35.5 L, MCV 85.7, MCH 30.0, MCHC 34.9, RDW Std Deviation 38.7, RDW Coeff of Brittany 12.5, Plt Count 109 L, MPV 11.2, Immature Gran % (Auto) 0.800, Neut % (Auto) 81.0 H, Lymph % (Auto) 1.2 L, Eagle % (Auto) 4.4, Eos % (Auto) 12.2 H, Baso % (Auto) 0.4, Absolute Neuts (auto) 8.9 H, Absolute Lymphs (auto) 0.13 L, Nucleated RBC % 0, Differential Comment SCANNED 02/25/21 03:45: Sodium 137, Potassium 3.2 L, Chloride 108 H, Carbon Dioxide 21.0, Anion Gap 8, BUN 14, Creatinine 1.25, Estim Creat Clear Calc 71.95, Est GFR (MDRD) Af Amer 77, Est GFR (MDRD) Non-Af 64, BUN/Creatinine Ratio 11.2, Glucose 275 H, Calcium 8.2 L 02/25/21 03:45: Lactic Acid 2.8 H* 02/25/21 07:05: POC Glucose 303 H 02/25/21 10:11: POC Glucose 288 H Microbiology: Microbiology 02/25/21 00:27 Blood Culture (Wb) - Right Forearm Blood Culture - Preliminary 02/24/21 23:57 Blood Culture (Wb) - Left Forearm Blood Culture - Preliminary 02/25/21 10:10 Stool Stool Lactoferrin - Final 02/24/21 21:23 Nasal Secretion SARS-CoV-2 Antigen (Rapid) - Final Radiography Diagnostic Testing: Radiology Impression Abdomen/Pelvis CT 02/24/21 21:10 IMPRESSION: 1. Enlarged prostate gland with prominent simple appearing prostatic cystic lesion, possibly mullerian duct or utricle cyst. 2. No evidence of acute bowel pathology. 3. Hepatic steatosis, small hiatal hernia, and other nonurgent findings within body of report. Individualized dose optimization techniques were used for this CT. at 2254 Reported and signed by: Sonny Woo MD Electronically Signed: Sonny Woo MD at 22:53 EDT Tel , Service support , Chest X-Ray 02/24/21 23:50 IMPRESSION: Coronary stent. Old right-sided rib fractures. No acute infiltrate. Electronically Signed: Dilma Rader MD at 1:59 EDT Tel , Service support , D/C Instructions Discharge Diet: 2000 Calorie Control Diet Call your doctor if you observe: Fever of 101 or Higher and - (inability to urinate) Please Follow Up With: Urology When: 1-2 weeks Meaningful Use Info Meaningful Use Diagnoses (Choose all that apply): None applicable Discharge Plan Admission Admit Date/Time: 02/25/21 02:22 Primary Reason for Your Visit: Prostatitis Attending Provider: Luis Parnell Primary Care Provider: Care Physician,No Primary Consulting Providers: Denton Aparicio Discharge Orders/Prescriptions Prescriptions: New levofloxacin 750 mg tablet 750 mg PO Q24H Qty: 13 RF: 0 Continued metformin 500 mg Tablet 500 mg PO BID RF: 0 carvedilol 6.25 mg tablet 6.25 mg PO BID RF: 0 atorvastatin 20 mg tablet 20 mg PO DAILY RF: 0 glipizide 10 mg tablet extended release 24hr 10 mg PO BID RF: 0 sertraline 100 mg tablet 100 mg PO BID RF: 0 tamsulosin 0.4 mg Capsule 0.4 mg PO DAILY RF: 0 gabapentin 800 mg tablet 800 mg PO TID RF: 0 amlodipine 10 mg tablet 10 mg PO DAILY RF: 0 diazepam 5 mg tablet 5 mg PO DAILY RF: 0 atomoxetine 40 mg capsule 40 mg PO BID RF: 0 dalfampridine 10 mg tablet extended release 12 hr 10 mg PO BID RF: 0 Gilenya 0.5 mg capsule 0.5 mg PO QODAY RF: 0 Myrbetriq 25 mg tablet extended release 24 hr 25 mg PO DAILY RF: 0 nystatin 1 applic OTHER BID RF: 0 Referrals / Follow Up: Care Physician,No Primary [Primary Care Provider] - Disposition Disposition (needs filled in before D/C Order can be placed): Home, Self Care Charges/Coding Visit Charges Inpatient E&M: 47711 Disch Hosp
[2021-02-25 14:16] LABS: Bedside Glucose 258 mg/dL (70-110)
[2021-02-25] MEDS: Calcium Carbonate 500 MG Tablet 1000 MG PO (16:00)
[2021-02-25] MEDS: Pantoprazole Sodium 40 MG Tablet PO (16:00)
[2021-02-25 18:06] LABS: Bedside Glucose 270 mg/dL (70-110)
[2021-02-25] MEDS: Mirabegron 25 MG TAB.ER.24H PO (19:45)
[2021-02-25] MEDS: diazePAM 5 MG Tablet PO (19:46)
[2021-02-25 20:01] LABS: Bedside Glucose 247 mg/dL (70-110)
[2021-02-25] MEDS: Acetaminophen 325 MG Tablet 650 MG PO (20:22)
--- NOTE | 2021-02-25 20:58 | NURSING ---
Pt d/c'd home with significant other. Pt given instructions to continue home meds and the new antibiotic and nausea medication. Also instructed pt to seek medical treatment if showing any signs of septic shock or hyper/hypoglycemia. Pt and significant other voiced understanding and agreed. Pt left [facility] campus via private car.
[2021-02-26 20:50] LABS: Giardia Lamblia, Stool EIA Negative (Negative)
== END 2021-02-25 20:58 | disposition home or self-care (01) | DRG 872 ==
LOC: ED 23:55 → ICU 02-25 07:31
PROVIDERS: Admitting Provider Hospitalist; Emergency Provider Student in an Organized Health Care Education/Training Program
DX: A41.9 Sepsis, unspecified organism (principal); N41.0 Acute prostatitis; N17.9 Acute kidney failure, unspecified; I10 Essential (primary) hypertension; G35 Multiple sclerosis; E11.65 Type 2 diabetes mellitus with hyperglycemia; N42.83 Cyst of prostate; K76.0 Fatty (change of) liver, not elsewhere classified; N40.1 Benign prostatic hyperplasia with lower urinary tract symptoms; R30.0 Dysuria; R35.0 Frequency of micturition; Z87.891 Personal history of nicotine dependence; K44.9 Diaphragmatic hernia without obstruction or gangrene; H54.7 Unspecified visual loss
CPT/HCPCS: 36415; 71045; 74177; 80048; 80053; 81001; 82962; 83605; 83630; 83690; 85025; 85610; 87040; 87077; 87086; 87088; 87186; 87329; 87426; 87491; 87506; 87591; 99285; J7030; Q9967; A4216; J2405